=== PATIENT | female | born 1975 | race African-American/Black ===

== ENCOUNTER 2021-09-12 11:10 | Inpatient (IN) | payer OTHER ==
[2021-09-12 12:09] VITALS: BMI 28.5
[2021-09-12] MEDS ORDERED: cloNIDine HCL 0.1 MG TABLET PO PRN (12:48)
[2021-09-12] MEDS ORDERED: MAGNESIUM CITRATE 300 ML BOTTLE PO PRN (12:48)
[2021-09-12] MEDS ORDERED: IBUPROFEN 400 MG TABLET (FP) PO PRN (12:48)
[2021-09-12] MEDS ORDERED: NICOTINE 10 MG CARTRIDGE (INHALER) IH PRN (12:48)
[2021-09-12] MEDS ORDERED: ONDANSETRON *ODT* 4 MG TABLET SL PRN (12:48)
[2021-09-12] MEDS ORDERED: ACETAMINOPHEN 325 MG TABLET (FP) PO PRN ×2 (12:48)
[2021-09-12] MEDS ORDERED: MENTHOL/PHENOL 1 EACH UD MM PRN (12:48)
[2021-09-12] MEDS ORDERED: MAG HYDROX/AL HYDROX/SIMETH 30 ML UNIT-DOSE CUP PO PRN (12:48)
[2021-09-12] MEDS ORDERED: methaDONE HCL 10 MG TABLET (FOR DETOX USE ONLY) PO ONE (12:48)
[2021-09-12] MEDS ORDERED: BISMUTH SUBSALICYLATE 524 MG/30 ML PO PRN (12:48)
[2021-09-12] MEDS ORDERED: MAGNESIUM HYDROX 2400MG/30ML ORAL SUSPENSION 30 ML CUP PO PRN (12:48)
[2021-09-12] MEDS ORDERED: FLUCONAZOLE 50 MG TABLET PO ONE (12:56)
[2021-09-12] MEDS: NICOTINE 14 MG/24 HOURS TOPICAL PATCH TD SCH (14:16)
[2021-09-12] MEDS: SULFAMETHOXAZOLE/TRIMETHOPRIM 800MG/160MG D.S. TABLET PO SCH ×2 (14:19→22:25)
[2021-09-12] MEDS: PRENATAL VITAMINS W/ FOLIC ACID TABLET (FP) PO SCH (14:21)
[2021-09-12] MEDS: hydrOXYzine PAMOATE 25 MG CAPSULE (FP) PO SCH ×3 (14:21→22:25)
[2021-09-12 17:29] LABS: HEMATOCRIT 36.6 % (32.4-45.2); HEMOGLOBIN 12.6 GM/dL (10.7-15.3); MCH 31.6 pg (25.7-33.7); MCHC 34.5 g/dl (32.0-36.0); MEAN CELL VOLUME 91.5 fl (80-96); MEAN PLT VOLUME 8.7 fl (7.5-11.1); PLATELET COUNT 278 10^3/uL (134-434); RDW 14.8 % (11.6-15.6); WHITE BLOOD COUNT 3.8 K/mm3 (4.0-10.0)
[2021-09-12 17:30] LABS: ALBUMIN 2.6 g/dl (3.4-5.0); CALCIUM 8.4 mg/dL (8.5-10.1)
[2021-09-12 17:34] LABS: CREATININE 0.5 mg/dL (0.55-1.3)
[2021-09-12 17:35] LABS: BILIRUBIN,TOTAL 0.2 mg/dL (0.2-1); TOT PROT 8.7 g/dl (6.4-8.2)
[2021-09-12] MEDS ORDERED: MELATONIN 5 MG TABLETS PO SCH (22:00)
[2021-09-12] MEDS: THIAMINE HCL 100 MG TABLET (FP) PO SCH (22:25)
[2021-09-13] MEDS: hydrOXYzine PAMOATE 25 MG CAPSULE (FP) PO SCH ×5 (05:21→22:17)
[2021-09-13] MEDS ORDERED: methaDONE HCL 10 MG TABLET (FOR DETOX USE ONLY) ONE ×2 (09:39→11:08)
[2021-09-13] MEDS: SULFAMETHOXAZOLE/TRIMETHOPRIM 800MG/160MG D.S. TABLET PO SCH ×2 (11:04→22:15)
[2021-09-13] MEDS: PRENATAL VITAMINS W/ FOLIC ACID TABLET (FP) PO SCH (11:04)
[2021-09-13] MEDS: NICOTINE 14 MG/24 HOURS TOPICAL PATCH TD SCH (11:05)
[2021-09-13] MEDS: ACYCLOVIR 400 MG TABLET PO SCH ×2 (13:59→22:15)
[2021-09-13] MEDS: NICOTINE POLACRILEX 2 MG GUM BUC PRN ×3 (15:40→23:09)
[2021-09-13 17:31] LABS: EPI CELLS >36 /uL (0-25.1); HYALINE CASTS 17 /uL (0-3.1); URINE APPEARANCE CLOUDY; URINE BACTERIA 387 /uL (0-1359); URINE BILIRUBIN 1+ (NEGATIVE); URINE COLOR DK YELLOW; URINE GLUCOSE (UA) NEGATIVE (NEGATIVE); URINE KETONE TRACE (NEGATIVE); URINE LEUK ESTERASE 1+ (NEGATIVE); URINE NITRITE NEGATIVE (NEGATIVE); URINE PROTEIN 1+ (NEGATIVE); URINE WBC 52 /uL (0-25.8)
[2021-09-13 18:39] LABS: URINE RBC 26 /uL (0-23.9)
[2021-09-13] MEDS: QUEtiapine FUMARATE 200 MG TABLET PO SCH (22:14)
[2021-09-13] MEDS: THIAMINE HCL 100 MG TABLET (FP) PO SCH (22:15)
[2021-09-13] MEDS: MIRTAZAPINE 15 MG TABLET (FP) PO SCH (22:15)
[2021-09-14] MEDS: hydrOXYzine PAMOATE 25 MG CAPSULE (FP) PO SCH ×5 (06:03→22:29)
[2021-09-14] MEDS: NICOTINE POLACRILEX 2 MG GUM BUC PRN ×5 (06:04→22:29)
[2021-09-14] MEDS ORDERED: methaDONE HCL 10 MG TABLET (FOR DETOX USE ONLY) PO ONE (10:00)
[2021-09-14] MEDS: SULFAMETHOXAZOLE/TRIMETHOPRIM 800MG/160MG D.S. TABLET PO SCH ×2 (10:51→22:28)
[2021-09-14] MEDS: PRENATAL VITAMINS W/ FOLIC ACID TABLET (FP) PO SCH (10:51)
[2021-09-14] MEDS: ACYCLOVIR 400 MG TABLET PO SCH ×2 (10:51→22:29)
[2021-09-14] MEDS: NICOTINE 14 MG/24 HOURS TOPICAL PATCH TD SCH (10:53)
[2021-09-14] MEDS: QUEtiapine FUMARATE 200 MG TABLET PO SCH (22:29)
[2021-09-14] MEDS: THIAMINE HCL 100 MG TABLET (FP) PO SCH (22:29)
[2021-09-14] MEDS: MIRTAZAPINE 15 MG TABLET (FP) PO SCH (22:29)
[2021-09-15] MEDS: hydrOXYzine PAMOATE 25 MG CAPSULE (FP) PO SCH ×5 (05:22→22:01)
[2021-09-15] MEDS: NICOTINE POLACRILEX 2 MG GUM BUC PRN ×5 (07:07→22:05)
[2021-09-15] MEDS ORDERED: methaDONE HCL 10 MG TABLET (FOR DETOX USE ONLY) ONE (09:49)
[2021-09-15] MEDS: SULFAMETHOXAZOLE/TRIMETHOPRIM 800MG/160MG D.S. TABLET PO SCH ×2 (10:31→22:03)
[2021-09-15] MEDS: METHOCARBAMOL 500 MG TABLET PO PRN (10:31)
[2021-09-15] MEDS: ACYCLOVIR 400 MG TABLET PO SCH ×2 (10:31→22:02)
[2021-09-15] MEDS: PRENATAL VITAMINS W/ FOLIC ACID TABLET (FP) PO SCH (10:31)
[2021-09-15] MEDS: NICOTINE 14 MG/24 HOURS TOPICAL PATCH TD SCH (10:31)
[2021-09-15] MEDS: FLUCONAZOLE 100 MG TABLET (UD) PO SCH (13:34)
[2021-09-15] MEDS: THIAMINE HCL 100 MG TABLET (FP) PO SCH (22:03)
[2021-09-15] MEDS: MIRTAZAPINE 15 MG TABLET (FP) PO SCH (22:03)
[2021-09-15] MEDS: QUEtiapine FUMARATE 200 MG TABLET PO SCH (22:03)
[2021-09-16] MEDS: hydrOXYzine PAMOATE 25 MG CAPSULE (FP) PO SCH ×5 (06:14→22:25)
[2021-09-16] MEDS: NICOTINE POLACRILEX 2 MG GUM BUC PRN ×5 (06:15→22:27)
[2021-09-16] MEDS ORDERED: methaDONE HCL 10 MG TABLET (FOR DETOX USE ONLY) PO ONE (10:00)
[2021-09-16] MEDS: NICOTINE 14 MG/24 HOURS TOPICAL PATCH TD SCH (10:11)
[2021-09-16] MEDS: FLUCONAZOLE 100 MG TABLET (UD) PO SCH (10:11)
[2021-09-16] MEDS: ACYCLOVIR 400 MG TABLET PO SCH ×2 (10:11→22:24)
[2021-09-16] MEDS: METHOCARBAMOL 500 MG TABLET PO PRN (10:11)
[2021-09-16] MEDS: PRENATAL VITAMINS W/ FOLIC ACID TABLET (FP) PO SCH (10:11)
[2021-09-16] MEDS: SULFAMETHOXAZOLE/TRIMETHOPRIM 800MG/160MG D.S. TABLET PO SCH ×2 (10:11→22:25)
[2021-09-16] MEDS: THIAMINE HCL 100 MG TABLET (FP) PO SCH (22:25)
[2021-09-16] MEDS: MIRTAZAPINE 15 MG TABLET (FP) PO SCH (22:25)
[2021-09-16] MEDS: QUEtiapine FUMARATE 200 MG TABLET PO SCH (22:25)
[2021-09-17] MEDS: hydrOXYzine PAMOATE 25 MG CAPSULE (FP) PO SCH ×5 (06:19→22:07)
[2021-09-17] MEDS: NICOTINE POLACRILEX 2 MG GUM BUC PRN ×5 (06:20→22:10)
[2021-09-17] MEDS: FLUCONAZOLE 100 MG TABLET (UD) PO SCH (12:00)
[2021-09-17] MEDS: ACYCLOVIR 400 MG TABLET PO SCH ×2 (12:00→22:10)
[2021-09-17] MEDS: PRENATAL VITAMINS W/ FOLIC ACID TABLET (FP) PO SCH (12:01)
[2021-09-17] MEDS: NICOTINE 14 MG/24 HOURS TOPICAL PATCH TD SCH (12:01)
[2021-09-17] MEDS: METHOCARBAMOL 500 MG TABLET PO PRN (12:09)
[2021-09-17] MEDS: MIRTAZAPINE 15 MG TABLET (FP) PO SCH (22:07)
[2021-09-17] MEDS: QUEtiapine FUMARATE 200 MG TABLET PO SCH (22:07)
[2021-09-17] MEDS: THIAMINE HCL 100 MG TABLET (FP) PO SCH (22:07)
[2021-09-18] MEDS: hydrOXYzine PAMOATE 25 MG CAPSULE (FP) PO SCH ×2 (05:47→11:42)
[2021-09-18 07:38] VITALS: BP 116/58; PULSE 90; TEMP 96
[2021-09-18] MEDS: FLUCONAZOLE 100 MG TABLET (UD) PO SCH (11:42)
[2021-09-18] MEDS: NICOTINE 14 MG/24 HOURS TOPICAL PATCH TD SCH (11:42)
[2021-09-18] MEDS: PRENATAL VITAMINS W/ FOLIC ACID TABLET (FP) PO SCH (11:42)
[2021-09-18] MEDS: NICOTINE POLACRILEX 2 MG GUM BUC PRN (11:53)
== END 2021-09-18 13:17 | disposition other institution (70) | DRG 773 ==
LOC: YASAS 11:10 → Y6N 13:26
PROVIDERS: ADMIT Allergy & Immunology; ATTEND Allergy & Immunology
PROC: HZ2ZZZZ Detoxification Services for Substance Abuse Treatment (ICD-10-PCS; principal; 2021-09-12)
DX: F11.23 Opioid dependence with withdrawal (principal); F14.10 Cocaine abuse, uncomplicated; F10.10 Alcohol abuse, uncomplicated; F12.20 Cannabis dependence, uncomplicated; F43.10 Post-traumatic stress disorder, unspecified; F25.9 Schizoaffective disorder, unspecified; F31.9 Bipolar disorder, unspecified; N39.0 Urinary tract infection, site not specified; B00.9 Herpesviral infection, unspecified; B20 Human immunodeficiency virus [HIV] disease; Z86.59 Personal history of other mental and behavioral disorders; Z56.0 Unemployment, unspecified
CPT/HCPCS: 36415; 80053; 81003; 85027; 86780; 93005; 93010; C9803; U0003; U0005

== ENCOUNTER 2021-09-18 13:13 | Inpatient (IN) | payer OTHER ==
[2021-09-18] MEDS ORDERED: MAGNESIUM CITRATE 300 ML BOTTLE PO PRN (14:24)
[2021-09-18] MEDS ORDERED: MAG HYDROX/AL HYDROX/SIMETH 30 ML UNIT-DOSE CUP PO PRN (14:24)
[2021-09-18] MEDS ORDERED: P-EPHED 60MG/TRIPROLIDI 2.5MG TABLET PO PRN (14:24)
[2021-09-18] MEDS ORDERED: LOPERAMIDE HCL 2 MG CAPSULE PO PRN (14:24)
[2021-09-18] MEDS ORDERED: NICOTINE 10 MG CARTRIDGE (INHALER) IH PRN (14:24)
[2021-09-18] MEDS: ACYCLOVIR 400 MG TABLET PO SCH (22:59)
[2021-09-18] MEDS: MELATONIN 5 MG TABLETS PO SCH (22:59)
[2021-09-18] MEDS: MIRTAZAPINE 15 MG TABLET (FP) PO SCH (22:59)
[2021-09-18] MEDS: THIAMINE HCL 100 MG TABLET (FP) PO SCH (22:59)
[2021-09-18] MEDS: QUEtiapine FUMARATE 200 MG TABLET PO SCH (22:59)
[2021-09-18] MEDS: SULFAMETHOXAZOLE/TRIMETHOPRIM 800MG/160MG D.S. TABLET PO SCH (22:59)
[2021-09-19] MEDS ORDERED: NICOTINE 7 MG/24 HOURS TOPICAL PATCH TD SCH (10:00)
[2021-09-19] MEDS: PRENATAL VITAMINS W/ FOLIC ACID TABLET (FP) PO SCH (10:44)
[2021-09-19] MEDS: FLUCONAZOLE 100 MG TABLET (UD) PO SCH (10:45)
[2021-09-19] MEDS: ACYCLOVIR 400 MG TABLET PO SCH ×2 (10:45→21:28)
[2021-09-19] MEDS: SULFAMETHOXAZOLE/TRIMETHOPRIM 800MG/160MG D.S. TABLET PO SCH ×2 (10:45→21:28)
[2021-09-19] MEDS: NICOTINE 14 MG/24 HOURS TOPICAL PATCH TD SCH (10:46)
[2021-09-19] MEDS: NICOTINE POLACRILEX 2 MG GUM BUC PRN ×3 (12:39→21:29)
[2021-09-19] MEDS: QUEtiapine FUMARATE 200 MG TABLET PO SCH (21:28)
[2021-09-19] MEDS: THIAMINE HCL 100 MG TABLET (FP) PO SCH (21:28)
[2021-09-19] MEDS: MELATONIN 5 MG TABLETS PO SCH (21:28)
[2021-09-19] MEDS: MIRTAZAPINE 15 MG TABLET (FP) PO SCH (21:28)
[2021-09-20] MEDS: SULFAMETHOXAZOLE/TRIMETHOPRIM 800MG/160MG D.S. TABLET PO SCH ×2 (10:58→21:08)
[2021-09-20] MEDS: ACYCLOVIR 400 MG TABLET PO SCH ×2 (10:58→21:08)
[2021-09-20] MEDS: NICOTINE 14 MG/24 HOURS TOPICAL PATCH TD SCH (10:58)
[2021-09-20] MEDS: FLUCONAZOLE 100 MG TABLET (UD) PO SCH (10:58)
[2021-09-20] MEDS: PRENATAL VITAMINS W/ FOLIC ACID TABLET (FP) PO SCH (10:58)
[2021-09-20] MEDS: ALBUTEROL SO4 HFA INHALER IH PRN (12:21)
[2021-09-20] MEDS: guaiFENesin 200 MG/10 ML 10 ML UNIT-DOSE CUPS PO PRN ×2 (12:22→21:09)
[2021-09-20] MEDS: NICOTINE POLACRILEX 2 MG GUM BUC PRN ×3 (12:23→19:54)
[2021-09-20 16:31] LABS: PH,URINE 6.5 (5.0-8.0); URINE APPEARANCE CLEAR; URINE BILIRUBIN NEGATIVE (NEGATIVE); URINE COLOR DK YELLOW; URINE GLUCOSE (UA) NEGATIVE (NEGATIVE); URINE KETONE NEGATIVE (NEGATIVE); URINE LEUK ESTERASE NEGATIVE (NEGATIVE); URINE NITRITE NEGATIVE (NEGATIVE); URINE PROTEIN NEGATIVE (NEGATIVE)
[2021-09-20] MEDS: hydrOXYzine PAMOATE 25 MG CAPSULE (FP) PO PRN (21:07)
[2021-09-20] MEDS: THIAMINE HCL 100 MG TABLET (FP) PO SCH (21:08)
[2021-09-20] MEDS: MELATONIN 5 MG TABLETS PO SCH (21:08)
[2021-09-20] MEDS: QUEtiapine FUMARATE 200 MG TABLET PO SCH (21:08)
[2021-09-20] MEDS: MIRTAZAPINE 15 MG TABLET (FP) PO SCH (21:08)
[2021-09-20] MEDS: ACETAMINOPHEN 325 MG TABLET (FP) PO PRN (21:11)
[2021-09-21] MEDS ORDERED: PT OWN MED DRAWER 7, Y5N ONE (09:55)
[2021-09-21] MEDS: ACYCLOVIR 400 MG TABLET PO SCH ×2 (10:00→21:10)
[2021-09-21] MEDS: FLUCONAZOLE 100 MG TABLET (UD) PO SCH (10:00)
[2021-09-21] MEDS: SULFAMETHOXAZOLE/TRIMETHOPRIM 800MG/160MG D.S. TABLET PO SCH ×2 (10:00→21:10)
[2021-09-21] MEDS: NICOTINE 14 MG/24 HOURS TOPICAL PATCH TD SCH (10:01)
[2021-09-21] MEDS: PRENATAL VITAMINS W/ FOLIC ACID TABLET (FP) PO SCH (10:01)
[2021-09-21] MEDS: NICOTINE POLACRILEX 2 MG GUM BUC PRN ×4 (10:03→21:12)
[2021-09-21] MEDS: guaiFENesin 200 MG/10 ML 10 ML UNIT-DOSE CUPS PO PRN (10:03)
[2021-09-21] MEDS: MIRTAZAPINE 15 MG TABLET (FP) PO SCH (21:10)
[2021-09-21] MEDS: QUEtiapine FUMARATE 200 MG TABLET PO SCH (21:10)
[2021-09-21] MEDS: hydrOXYzine PAMOATE 25 MG CAPSULE (FP) PO PRN (21:10)
[2021-09-21] MEDS: THIAMINE HCL 100 MG TABLET (FP) PO SCH (21:10)
[2021-09-21] MEDS: MELATONIN 5 MG TABLETS PO SCH (21:10)
[2021-09-22] MEDS: FLUCONAZOLE 100 MG TABLET (UD) PO SCH (10:35)
[2021-09-22] MEDS: ACYCLOVIR 400 MG TABLET PO SCH ×2 (10:35→22:01)
[2021-09-22] MEDS: PRENATAL VITAMINS W/ FOLIC ACID TABLET (FP) PO SCH (10:35)
[2021-09-22] MEDS: NICOTINE 14 MG/24 HOURS TOPICAL PATCH TD SCH (10:36)
[2021-09-22] MEDS: SULFAMETHOXAZOLE/TRIMETHOPRIM 800MG/160MG D.S. TABLET PO SCH ×2 (10:36→22:00)
[2021-09-22] MEDS: NICOTINE POLACRILEX 2 MG GUM BUC PRN ×3 (10:37→20:48)
[2021-09-22] MEDS: hydrOXYzine PAMOATE 25 MG CAPSULE (FP) PO PRN ×2 (10:37→22:00)
[2021-09-22] MEDS ORDERED: QUEtiapine FUMARATE 50 MG TABLET PO ONE (16:15)
[2021-09-22] MEDS: ALBUTEROL SO4 HFA INHALER IH PRN (22:00)
[2021-09-22] MEDS: QUEtiapine FUMARATE 300 MG TABLET PO SCH (22:00)
[2021-09-22] MEDS: MIRTAZAPINE 30 MG TABLET PO SCH (22:00)
[2021-09-22] MEDS: THIAMINE HCL 100 MG TABLET (FP) PO SCH (22:01)
[2021-09-22] MEDS: guaiFENesin 200 MG/10 ML 10 ML UNIT-DOSE CUPS PO PRN (22:03)
[2021-09-23] MEDS: FLUCONAZOLE 100 MG TABLET (UD) PO SCH (10:56)
[2021-09-23] MEDS: NICOTINE 14 MG/24 HOURS TOPICAL PATCH TD SCH (10:56)
[2021-09-23] MEDS: PRENATAL VITAMINS W/ FOLIC ACID TABLET (FP) PO SCH (10:56)
[2021-09-23] MEDS: ACYCLOVIR 400 MG TABLET PO SCH ×2 (10:57→21:50)
[2021-09-23] MEDS: SULFAMETHOXAZOLE/TRIMETHOPRIM 800MG/160MG D.S. TABLET PO SCH ×2 (10:57→21:51)
[2021-09-23] MEDS: NICOTINE POLACRILEX 2 MG GUM BUC PRN ×3 (10:58→21:57)
[2021-09-23] MEDS: ALBUTEROL SO4 HFA INHALER IH PRN (21:50)
[2021-09-23] MEDS: THIAMINE HCL 100 MG TABLET (FP) PO SCH (21:51)
[2021-09-23] MEDS: QUEtiapine FUMARATE 300 MG TABLET PO SCH (21:51)
[2021-09-23] MEDS: MIRTAZAPINE 30 MG TABLET PO SCH (21:51)
[2021-09-23] MEDS: guaiFENesin 200 MG/10 ML 10 ML UNIT-DOSE CUPS PO PRN (21:56)
[2021-09-23] MEDS: hydrOXYzine PAMOATE 25 MG CAPSULE (FP) PO PRN (21:56)
[2021-09-24] MEDS: PRENATAL VITAMINS W/ FOLIC ACID TABLET (FP) PO SCH (10:21)
[2021-09-24] MEDS: FLUCONAZOLE 100 MG TABLET (UD) PO SCH (10:22)
[2021-09-24] MEDS: NICOTINE 14 MG/24 HOURS TOPICAL PATCH TD SCH (10:22)
[2021-09-24] MEDS: NICOTINE POLACRILEX 2 MG GUM BUC PRN ×3 (10:23→20:03)
[2021-09-24] MEDS: guaiFENesin 200 MG/10 ML 10 ML UNIT-DOSE CUPS PO PRN ×2 (10:24→21:19)
[2021-09-24] MEDS: MIRTAZAPINE 30 MG TABLET PO SCH (21:18)
[2021-09-24] MEDS: hydrOXYzine PAMOATE 25 MG CAPSULE (FP) PO PRN (21:18)
[2021-09-24] MEDS: THIAMINE HCL 100 MG TABLET (FP) PO SCH (21:18)
[2021-09-24] MEDS: QUEtiapine FUMARATE 300 MG TABLET PO SCH (21:20)
[2021-09-25] MEDS: FLUCONAZOLE 100 MG TABLET (UD) PO SCH (10:10)
[2021-09-25] MEDS: NICOTINE 14 MG/24 HOURS TOPICAL PATCH TD SCH (10:11)
[2021-09-25] MEDS: PRENATAL VITAMINS W/ FOLIC ACID TABLET (FP) PO SCH (10:11)
[2021-09-25] MEDS: NICOTINE POLACRILEX 2 MG GUM BUC PRN ×5 (10:43→22:13)
[2021-09-25] MEDS: THIAMINE HCL 100 MG TABLET (FP) PO SCH (22:09)
[2021-09-25] MEDS: hydrOXYzine PAMOATE 25 MG CAPSULE (FP) PO PRN (22:10)
[2021-09-25] MEDS: MIRTAZAPINE 30 MG TABLET PO SCH (22:10)
[2021-09-25] MEDS: guaiFENesin 200 MG/10 ML 10 ML UNIT-DOSE CUPS PO PRN (22:11)
[2021-09-25] MEDS: ACETAMINOPHEN 325 MG TABLET (FP) PO PRN (22:11)
[2021-09-25] MEDS: QUEtiapine FUMARATE 300 MG TABLET PO SCH (23:01)
[2021-09-26] MEDS: PRENATAL VITAMINS W/ FOLIC ACID TABLET (FP) PO SCH (10:45)
[2021-09-26] MEDS: FLUCONAZOLE 100 MG TABLET (UD) PO SCH (10:45)
[2021-09-26] MEDS: NICOTINE 14 MG/24 HOURS TOPICAL PATCH TD SCH (10:45)
[2021-09-26] MEDS: guaiFENesin 200 MG/10 ML 10 ML UNIT-DOSE CUPS PO PRN ×2 (10:45→21:17)
[2021-09-26] MEDS: NICOTINE POLACRILEX 2 MG GUM BUC PRN ×2 (12:53→17:27)
[2021-09-26] MEDS: SULFAMETHOXAZOLE/TRIMETHOPRIM 800MG/160MG D.S. TABLET PO SCH (13:54)
[2021-09-26] MEDS: hydrOXYzine PAMOATE 25 MG CAPSULE (FP) PO PRN ×2 (13:54→21:17)
[2021-09-26] MEDS: MAGNESIUM HYDROX 2400MG/30ML ORAL SUSPENSION 30 ML CUP PO PRN (13:55)
[2021-09-26] MEDS: QUEtiapine FUMARATE 300 MG TABLET PO SCH (21:17)
[2021-09-26] MEDS: MIRTAZAPINE 30 MG TABLET PO SCH (21:17)
[2021-09-26] MEDS: THIAMINE HCL 100 MG TABLET (FP) PO SCH (21:17)
[2021-09-26] MEDS: ACETAMINOPHEN 325 MG TABLET (FP) PO PRN (21:18)
[2021-09-27] MEDS: PRENATAL VITAMINS W/ FOLIC ACID TABLET (FP) PO SCH (10:23)
[2021-09-27] MEDS: SULFAMETHOXAZOLE/TRIMETHOPRIM 800MG/160MG D.S. TABLET PO SCH (10:24)
[2021-09-27] MEDS: NICOTINE 14 MG/24 HOURS TOPICAL PATCH TD SCH (10:25)
[2021-09-27] MEDS: FLUCONAZOLE 100 MG TABLET (UD) PO SCH (10:25)
[2021-09-27] MEDS: IBUPROFEN 400 MG TABLET (FP) PO PRN ×2 (10:26→21:19)
[2021-09-27] MEDS: guaiFENesin 200 MG/10 ML 10 ML UNIT-DOSE CUPS PO PRN ×2 (10:26→21:19)
[2021-09-27] MEDS: NICOTINE POLACRILEX 2 MG GUM BUC PRN ×3 (10:27→17:16)
[2021-09-27] MEDS: QUEtiapine FUMARATE 100 MG TABLET (FP) PO SCH (21:18)
[2021-09-27] MEDS: MIRTAZAPINE 30 MG TABLET PO SCH (21:18)
[2021-09-27] MEDS: THIAMINE HCL 100 MG TABLET (FP) PO SCH (21:18)
[2021-09-27] MEDS: hydrOXYzine PAMOATE 25 MG CAPSULE (FP) PO PRN (21:18)
[2021-09-28] MEDS: SULFAMETHOXAZOLE/TRIMETHOPRIM 800MG/160MG D.S. TABLET PO SCH (10:31)
[2021-09-28] MEDS: guaiFENesin 200 MG/10 ML 10 ML UNIT-DOSE CUPS PO PRN ×2 (10:31→22:05)
[2021-09-28] MEDS: FLUCONAZOLE 100 MG TABLET (UD) PO SCH (10:32)
[2021-09-28] MEDS: IBUPROFEN 400 MG TABLET (FP) PO PRN ×2 (10:32→22:06)
[2021-09-28] MEDS: NICOTINE 14 MG/24 HOURS TOPICAL PATCH TD SCH (10:33)
[2021-09-28] MEDS: PRENATAL VITAMINS W/ FOLIC ACID TABLET (FP) PO SCH (10:33)
[2021-09-28] MEDS: NICOTINE POLACRILEX 2 MG GUM BUC PRN ×4 (10:33→20:41)
[2021-09-28] MEDS: MIRTAZAPINE 30 MG TABLET PO SCH (22:05)
[2021-09-28] MEDS: THIAMINE HCL 100 MG TABLET (FP) PO SCH (22:05)
[2021-09-28] MEDS: QUEtiapine FUMARATE 100 MG TABLET (FP) PO SCH (22:05)
[2021-09-28] MEDS: hydrOXYzine PAMOATE 25 MG CAPSULE (FP) PO PRN (22:05)
[2021-09-29] MEDS: NICOTINE 14 MG/24 HOURS TOPICAL PATCH TD SCH (11:26)
[2021-09-29] MEDS: SULFAMETHOXAZOLE/TRIMETHOPRIM 800MG/160MG D.S. TABLET PO SCH (11:26)
[2021-09-29] MEDS: FLUCONAZOLE 100 MG TABLET (UD) PO SCH (11:26)
[2021-09-29] MEDS: PRENATAL VITAMINS W/ FOLIC ACID TABLET (FP) PO SCH (11:26)
[2021-09-29] MEDS: NICOTINE POLACRILEX 2 MG GUM BUC PRN ×4 (12:33→21:05)
[2021-09-29] MEDS: QUEtiapine FUMARATE 100 MG TABLET (FP) PO SCH (21:03)
[2021-09-29] MEDS: MIRTAZAPINE 30 MG TABLET PO SCH (21:03)
[2021-09-29] MEDS: THIAMINE HCL 100 MG TABLET (FP) PO SCH (21:03)
[2021-09-29] MEDS: IBUPROFEN 400 MG TABLET (FP) PO PRN (21:04)
[2021-09-30] MEDS: FLUCONAZOLE 100 MG TABLET (UD) PO SCH (10:03)
[2021-09-30] MEDS: ALBUTEROL SO4 HFA INHALER IH PRN (10:03)
[2021-09-30] MEDS: SULFAMETHOXAZOLE/TRIMETHOPRIM 800MG/160MG D.S. TABLET PO SCH (10:03)
[2021-09-30] MEDS: NICOTINE POLACRILEX 2 MG GUM BUC PRN ×2 (10:04→21:37)
[2021-09-30] MEDS: IBUPROFEN 400 MG TABLET (FP) PO PRN ×2 (10:04→21:36)
[2021-09-30] MEDS: hydrOXYzine PAMOATE 25 MG CAPSULE (FP) PO PRN ×2 (10:04→21:36)
[2021-09-30] MEDS: NICOTINE 14 MG/24 HOURS TOPICAL PATCH TD SCH (10:04)
[2021-09-30] MEDS: PRENATAL VITAMINS W/ FOLIC ACID TABLET (FP) PO SCH (10:04)
[2021-09-30] MEDS: THIAMINE HCL 100 MG TABLET (FP) PO SCH (21:36)
[2021-09-30] MEDS: MIRTAZAPINE 15 MG TABLET (FP) PO SCH (21:36)
[2021-09-30] MEDS: MELATONIN 5 MG TABLETS PO PRN (21:36)
[2021-09-30] MEDS: QUEtiapine FUMARATE 100 MG TABLET (FP) PO SCH (21:36)
[2021-10-01] MEDS: SULFAMETHOXAZOLE/TRIMETHOPRIM 800MG/160MG D.S. TABLET PO SCH (11:29)
[2021-10-01] MEDS: NICOTINE 14 MG/24 HOURS TOPICAL PATCH TD SCH (11:30)
[2021-10-01] MEDS: PRENATAL VITAMINS W/ FOLIC ACID TABLET (FP) PO SCH (11:30)
[2021-10-01] MEDS: FLUCONAZOLE 100 MG TABLET (UD) PO SCH (11:30)
[2021-10-01] MEDS: NICOTINE POLACRILEX 2 MG GUM BUC PRN ×3 (12:25→21:19)
[2021-10-01] MEDS: QUEtiapine FUMARATE 100 MG TABLET (FP) PO SCH (21:17)
[2021-10-01] MEDS: MIRTAZAPINE 15 MG TABLET (FP) PO SCH (21:17)
[2021-10-01] MEDS: THIAMINE HCL 100 MG TABLET (FP) PO SCH (21:17)
[2021-10-01] MEDS: hydrOXYzine PAMOATE 25 MG CAPSULE (FP) PO PRN (21:17)
[2021-10-01] MEDS: IBUPROFEN 400 MG TABLET (FP) PO PRN (21:17)
[2021-10-01] MEDS: MELATONIN 5 MG TABLETS PO PRN (21:18)
[2021-10-02] MEDS ORDERED: PT OWN MED DRAWER 7, Y5N ONE (08:48)
[2021-10-02] MEDS: PRENATAL VITAMINS W/ FOLIC ACID TABLET (FP) PO SCH (09:27)
[2021-10-02] MEDS: FLUCONAZOLE 100 MG TABLET (UD) PO SCH (09:27)
[2021-10-02] MEDS: SULFAMETHOXAZOLE/TRIMETHOPRIM 800MG/160MG D.S. TABLET PO SCH (09:27)
[2021-10-02] MEDS: NICOTINE 14 MG/24 HOURS TOPICAL PATCH TD SCH (09:27)
[2021-10-02] MEDS: IBUPROFEN 400 MG TABLET (FP) PO PRN ×2 (09:30→21:19)
[2021-10-02] MEDS: guaiFENesin 600 MG TABLET.ER (FP) PO SCH ×2 (15:18→21:18)
[2021-10-02] MEDS: NICOTINE POLACRILEX 2 MG GUM BUC PRN ×3 (16:40→21:22)
[2021-10-02] MEDS: MIRTAZAPINE 15 MG TABLET (FP) PO SCH (21:19)
[2021-10-02] MEDS: THIAMINE HCL 100 MG TABLET (FP) PO SCH (21:19)
[2021-10-02] MEDS: QUEtiapine FUMARATE 100 MG TABLET (FP) PO SCH (21:19)
[2021-10-02] MEDS: ALBUTEROL SO4 HFA INHALER IH PRN (21:20)
[2021-10-02] MEDS: MELATONIN 5 MG TABLETS PO PRN (21:20)
[2021-10-02] MEDS: BUDESONIDE/FORMETEROL FUMARATE 80/4.5 mcg INHALER IH SCH (21:21)
[2021-10-03] MEDS: NICOTINE POLACRILEX 2 MG GUM BUC PRN ×4 (07:14→17:27)
[2021-10-03] MEDS: SULFAMETHOXAZOLE/TRIMETHOPRIM 800MG/160MG D.S. TABLET PO SCH (10:41)
[2021-10-03] MEDS: PRENATAL VITAMINS W/ FOLIC ACID TABLET (FP) PO SCH (10:41)
[2021-10-03] MEDS: NICOTINE 14 MG/24 HOURS TOPICAL PATCH TD SCH (10:42)
[2021-10-03] MEDS: guaiFENesin 600 MG TABLET.ER (FP) PO SCH ×2 (10:42→22:27)
[2021-10-03] MEDS: MAGNESIUM HYDROX 2400MG/30ML ORAL SUSPENSION 30 ML CUP PO PRN ×2 (10:45→21:05)
[2021-10-03] MEDS: BUDESONIDE/FORMETEROL FUMARATE 80/4.5 mcg INHALER IH SCH ×2 (10:45→21:06)
[2021-10-03] MEDS: IBUPROFEN 400 MG TABLET (FP) PO PRN (10:48)
[2021-10-03] MEDS: MELATONIN 5 MG TABLETS PO PRN (21:05)
[2021-10-03] MEDS: MIRTAZAPINE 15 MG TABLET (FP) PO SCH (21:06)
[2021-10-03] MEDS: THIAMINE HCL 100 MG TABLET (FP) PO SCH (21:07)
[2021-10-03] MEDS: QUEtiapine FUMARATE 100 MG TABLET (FP) PO SCH (21:07)
[2021-10-04] MEDS: NICOTINE POLACRILEX 2 MG GUM BUC PRN ×4 (08:18→19:16)
[2021-10-04] MEDS: BUDESONIDE/FORMETEROL FUMARATE 80/4.5 mcg INHALER IH SCH ×2 (10:35→21:11)
[2021-10-04] MEDS: NICOTINE 14 MG/24 HOURS TOPICAL PATCH TD SCH (10:35)
[2021-10-04] MEDS: PRENATAL VITAMINS W/ FOLIC ACID TABLET (FP) PO SCH (10:35)
[2021-10-04] MEDS: SULFAMETHOXAZOLE/TRIMETHOPRIM 800MG/160MG D.S. TABLET PO SCH (10:35)
[2021-10-04] MEDS: guaiFENesin 600 MG TABLET.ER (FP) PO SCH ×2 (10:35→21:15)
[2021-10-04] MEDS: IBUPROFEN 400 MG TABLET (FP) PO PRN ×2 (10:37→21:15)
[2021-10-04] MEDS: QUEtiapine FUMARATE 100 MG TABLET (FP) PO SCH (21:11)
[2021-10-04] MEDS: THIAMINE HCL 100 MG TABLET (FP) PO SCH (21:11)
[2021-10-04] MEDS: MIRTAZAPINE 15 MG TABLET (FP) PO SCH (21:11)
[2021-10-04] MEDS: MELATONIN 5 MG TABLETS PO PRN (21:16)
[2021-10-04] MEDS: hydrOXYzine PAMOATE 25 MG CAPSULE (FP) PO PRN (21:16)
[2021-10-05] MEDS: BUDESONIDE/FORMETEROL FUMARATE 80/4.5 mcg INHALER IH SCH ×2 (09:33→22:03)
[2021-10-05] MEDS: PRENATAL VITAMINS W/ FOLIC ACID TABLET (FP) PO SCH (09:33)
[2021-10-05] MEDS: IBUPROFEN 400 MG TABLET (FP) PO PRN ×2 (09:33→18:10)
[2021-10-05] MEDS: SULFAMETHOXAZOLE/TRIMETHOPRIM 800MG/160MG D.S. TABLET PO SCH (09:33)
[2021-10-05] MEDS: guaiFENesin 600 MG TABLET.ER (FP) PO SCH ×2 (09:34→21:55)
[2021-10-05] MEDS: NICOTINE POLACRILEX 2 MG GUM BUC PRN ×2 (09:35→16:21)
[2021-10-05] MEDS: NICOTINE 14 MG/24 HOURS TOPICAL PATCH TD SCH (09:35)
[2021-10-05] MEDS: MAGNESIUM HYDROX 2400MG/30ML ORAL SUSPENSION 30 ML CUP PO PRN ×2 (10:39→21:55)
[2021-10-05] MEDS ORDERED: NICOTINE 10 MG CARTRIDGE (INHALER) IH SCH (19:15)
[2021-10-05] MEDS: MIRTAZAPINE 15 MG TABLET (FP) PO SCH (21:53)
[2021-10-05] MEDS: QUEtiapine FUMARATE 100 MG TABLET (FP) PO SCH (21:54)
[2021-10-05] MEDS: MELATONIN 5 MG TABLETS PO PRN (21:55)
[2021-10-05] MEDS: THIAMINE HCL 100 MG TABLET (FP) PO SCH (21:55)
[2021-10-05] MEDS: NICOTINE 10 MG CARTRIDGE (INHALER) IH PRN (22:54)
[2021-10-06] MEDS: BUDESONIDE/FORMETEROL FUMARATE 80/4.5 mcg INHALER IH SCH ×2 (10:47→21:43)
[2021-10-06] MEDS: SULFAMETHOXAZOLE/TRIMETHOPRIM 800MG/160MG D.S. TABLET PO SCH (10:47)
[2021-10-06] MEDS: PRENATAL VITAMINS W/ FOLIC ACID TABLET (FP) PO SCH (10:47)
[2021-10-06] MEDS: NICOTINE 14 MG/24 HOURS TOPICAL PATCH TD SCH (10:48)
[2021-10-06] MEDS: IBUPROFEN 400 MG TABLET (FP) PO PRN ×2 (10:49→21:44)
[2021-10-06] MEDS: NICOTINE 10 MG CARTRIDGE (INHALER) IH PRN ×2 (10:50→18:03)
[2021-10-06] MEDS: NICOTINE POLACRILEX 2 MG GUM BUC PRN ×3 (13:10→20:15)
[2021-10-06] MEDS: guaiFENesin 600 MG TABLET.ER (FP) PO SCH ×2 (13:13→21:44)
[2021-10-06] MEDS: SUVOREXANT 10 MG TABLET PO PRN (21:42)
[2021-10-06] MEDS: THIAMINE HCL 100 MG TABLET (FP) PO SCH (21:44)
[2021-10-06] MEDS: MIRTAZAPINE 15 MG TABLET (FP) PO SCH (21:44)
[2021-10-06] MEDS: hydrOXYzine PAMOATE 25 MG CAPSULE (FP) PO PRN (21:44)
[2021-10-06] MEDS: QUEtiapine FUMARATE 100 MG TABLET (FP) PO SCH (21:44)
[2021-10-07] MEDS: SULFAMETHOXAZOLE/TRIMETHOPRIM 800MG/160MG D.S. TABLET PO SCH (10:21)
[2021-10-07] MEDS: IBUPROFEN 400 MG TABLET (FP) PO PRN ×2 (10:21→21:10)
[2021-10-07] MEDS: guaiFENesin 600 MG TABLET.ER (FP) PO SCH ×2 (10:21→21:09)
[2021-10-07] MEDS: BUDESONIDE/FORMETEROL FUMARATE 80/4.5 mcg INHALER IH SCH ×2 (10:21→22:37)
[2021-10-07] MEDS: NICOTINE POLACRILEX 2 MG GUM BUC PRN ×4 (10:22→19:27)
[2021-10-07] MEDS: PRENATAL VITAMINS W/ FOLIC ACID TABLET (FP) PO SCH (10:23)
[2021-10-07] MEDS: NICOTINE 10 MG CARTRIDGE (INHALER) IH PRN (10:23)
[2021-10-07] MEDS: THIAMINE HCL 100 MG TABLET (FP) PO SCH (21:09)
[2021-10-07] MEDS: MIRTAZAPINE 15 MG TABLET (FP) PO SCH (21:09)
[2021-10-07] MEDS: QUEtiapine FUMARATE 100 MG TABLET (FP) PO SCH (21:09)
[2021-10-07] MEDS: SUVOREXANT 10 MG TABLET PO PRN (21:13)
[2021-10-08 07:38] VITALS: BP 132/89; PULSE 75; TEMP 97.5
[2021-10-08] MEDS: NICOTINE POLACRILEX 2 MG GUM BUC PRN ×4 (08:57→22:00)
[2021-10-08] MEDS: BUDESONIDE/FORMETEROL FUMARATE 80/4.5 mcg INHALER IH SCH ×2 (10:28→21:55)
[2021-10-08] MEDS: guaiFENesin 600 MG TABLET.ER (FP) PO SCH ×2 (10:28→21:55)
[2021-10-08] MEDS: SULFAMETHOXAZOLE/TRIMETHOPRIM 800MG/160MG D.S. TABLET PO SCH (10:28)
[2021-10-08] MEDS: PRENATAL VITAMINS W/ FOLIC ACID TABLET (FP) PO SCH (10:28)
[2021-10-08] MEDS: IBUPROFEN 400 MG TABLET (FP) PO PRN ×2 (10:30→21:56)
[2021-10-08] MEDS: QUEtiapine FUMARATE 100 MG TABLET (FP) PO SCH (21:55)
[2021-10-08] MEDS: MIRTAZAPINE 15 MG TABLET (FP) PO SCH (21:55)
[2021-10-08] MEDS: THIAMINE HCL 100 MG TABLET (FP) PO SCH (21:55)
[2021-10-08] MEDS ORDERED: SUVOREXANT 10 MG TABLET PO PRN (22:00)
[2021-10-09] MEDS: guaiFENesin 600 MG TABLET.ER (FP) PO SCH (09:14)
[2021-10-09] MEDS: SULFAMETHOXAZOLE/TRIMETHOPRIM 800MG/160MG D.S. TABLET PO SCH (09:14)
[2021-10-09] MEDS: BUDESONIDE/FORMETEROL FUMARATE 80/4.5 mcg INHALER IH SCH (09:15)
[2021-10-09] MEDS: PRENATAL VITAMINS W/ FOLIC ACID TABLET (FP) PO SCH (09:15)
[2021-10-09] MEDS: IBUPROFEN 400 MG TABLET (FP) PO PRN (09:19)
[2021-10-09] MEDS: NICOTINE POLACRILEX 2 MG GUM BUC PRN (09:20)
== END 2021-10-09 09:58 | disposition home or self-care (01) | DRG 772 ==
LOC: YASAS 13:13 → Y5N 13:14
PROVIDERS: ADMIT Allergy & Immunology; ATTEND Allergy & Immunology
PROC: HZ42ZZZ Group Counseling for Substance Abuse Treatment, Cognitive-Behavioral (ICD-10-PCS; principal; 2021-09-18)
DX: F11.20 Opioid dependence, uncomplicated (principal); F10.20 Alcohol dependence, uncomplicated; F14.20 Cocaine dependence, uncomplicated; F17.210 Nicotine dependence, cigarettes, uncomplicated; F25.9 Schizoaffective disorder, unspecified; F32.9 Major depressive disorder, single episode, unspecified; F43.10 Post-traumatic stress disorder, unspecified; B20 Human immunodeficiency virus [HIV] disease; R05.9 Cough, unspecified; Z87.01 Personal history of pneumonia (recurrent); Z91.51 Personal history of suicidal behavior; Z56.0 Unemployment, unspecified
CPT/HCPCS: 81003; C9803; U0003; U0005